=== PATIENT | male | born 1990 | race Two or more races ===

== ENCOUNTER 2021-01-20 23:14 | Emergency (ER) | payer SELFPAY ==
[~2021-01-20] VITALS: Ht 165.1 cm; Wt 77.3 kg
[2021-01-21 00:20] VITALS: BP 114/68
[2021-01-21] MEDS ORDERED: FLUORESCEIN OPHTH TEST STRIP. OD ONE (01:00)
[2021-01-21] MEDS ORDERED: TETRACAINE 0.5% OPHTH SOLUTION 4ML BOTTLE. OD ONE (01:00)
[2021-01-21] MEDS ORDERED: ERYT1OIN3 OP (01:40)
[2021-01-21] MEDS ORDERED: TOBR5DRO6 OD (01:40)
--- NOTE | 2021-01-21 01:40 | PHYS DOC ---
Past Medical History Past Medical History: No Pertinent History Past Surgical History: No Surgical History Smoking Status: Never Smoker Alcohol Use: None Drug Use: None General Adult EDM: Chief Complaint: EYE PROBLEMS HPI: HPI: Patient is a 30 year old MALE who presented to the ER today due to right eye pain. 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 Today, while at work, he felt like there was something in his right eye, he tried to clean it out with water but he continues to have pain, sharp pain in nature, denied any blurry vision. Review of Systems: Review of Systems: Constitutional: Denies fever or chills. [] Eyes: Positive for right eye pain. NO BLURRY VISION HENT: Denies nasal congestion or sore throat. [] Respiratory: Denies cough or shortness of breath. [] Cardiovascular: Denies chest pain or edema. [] GI: Denies abdominal pain, nausea, vomiting, bloody stools or diarrhea. [] : Denies dysuria. [] Musculoskeletal: Denies back pain or joint pain. [] Integument: Denies rash. [] Neurologic: Denies headache, focal weakness or sensory changes. [] Endocrine: Denies polyuria or polydipsia. [] Lymphatic: Denies swollen glands. [] Psychiatric: Denies depression or anxiety. [] Heart Score: C/O Chest Pain: N/A Risk Factors: Risk Factors: DM, Current or recent (<one month) smoker, HTN, HLP, family history of CAD, obesity. Risk Scores: Score 0 - 3: 2.5% MACE over next 6 weeks - Discharge Home Score 4 - 6: 20.3% MACE over next 6 weeks - Admit for Clinical Observation Score 7 - 10: 72.7% MACE over next 6 weeks - Early Invasive Strategies Current Medications: Current Medications Medications (Trade) Dose Ordered Sig/Jose A Start Time Stop Time Status Last Admin Dose Admin Fluorescein Sodium (Ful-Bernadette) 1 strip 1X ONCE 01/21/21 01:00 01/21/21 01:01 DC Tetracaine HCl (Tetracaine) 3 drop 1X ONCE 01/21/21 01:00 01/21/21 01:01 DC Allergies: Allergies: Allergies Coded Allergies Type Severity Reaction Last Updated Verified No Known Drug Allergies 05/29/15 No Physical Exam: PE: Constitutional: Well developed, well nourished, no acute distress, non-toxic appearance. [] HENT: Normocephalic, atraumatic, bilateral external ears normal, oropharynx moist, no oral exudates, nose normal. [] Eyes: PERRLA, EOMI, RIGHT SIDE CONJUNCTIVA WITH INJECTION, RIGHT CORNEA ABRASION, DYE UPTAKE AT NOON POSITION, NO HYPHEMA, NEGATIVE YOUNG TEST. Neck: Normal range of motion, no tenderness, supple, no stridor. [] Cardiovascular:Heart rate regular rhythm, no murmur [] Lungs & Thorax: Bilateral breath sounds clear to auscultation [] Abdomen: Bowel sounds normal, soft, no tenderness, no masses, no pulsatile masses. [] Skin: Warm, dry, no erythema, no rash. [] Back: No tenderness, no CVA tenderness. [] Extremities: No tenderness, no cyanosis, no clubbing, ROM intact, no edema. [] Neurologic: Alert and oriented X 3, normal motor function, normal sensory function, no focal deficits noted. [] Psychologic: Affect normal, judgement normal, mood normal. [] Current Patient Data: Vital Signs: Vital Signs Date Time Temp Pulse Resp B/P (MAP) Pulse Ox O2 Delivery O2 Flow Rate FiO2 01/21/21 00:20 98.8 86 20 114/68 98 Room Air 98.8 EKG: EKG: [] Radiology/Procedures: Radiology/Procedures: [] Course & Med Decision Making: Course & Med Decision Making Pertinent Labs and Imaging studies reviewed. (See chart for details) Patient is a male present to ER due to right eye pain, patient was found to have a corneal abrasion. Patient was discharged home with antibiotic ointment and antibiotic eyedrop, patient will need to follow-up with eye doctor in a couple days for reevaluation. Dragon Disclaimer: Dragon Disclaimer: This electronic medical record was generated, in whole or in part, using a voice recognition dictation system. Departure Departure Impression: Primary Impression: Corneal abrasion, right Disposition: 01 HOME / SELF CARE / HOMELESS Condition: STABLE Referrals: NO PCP (PCP) Please call this EYE DOCTOR BELOW FOR FOLLOW UP IN 1-[address] Jorge Junior [address] [id number] Patient Instructions: Eye - Corneal Abrasion Additional Instructions: Thank you for visiting our Emergency Department. We appreciate you trusting us with your care. If any additional problems come up don't hesitate to return to visit us. Please follow up with your primary care provider so they can plan additional care if needed and know about the problem that you had. If symptoms worsen come back to the Emergency Department. Any concerning symptoms that start such as chest pain, shortness of air, weakness or numbness on one side of the body, running high fevers or any other concerning symptoms return to the ER. Scripts Erythromycin Base (ERYTHROMYCIN) 3.5 Gm Oint...g. 1 PHILLIP OP 3XDAY for OPHTH ANTIBIOTIC, #3.5 GM Prov: DAVID CHÁVEZ DO 01/21/21 Tobramycin Ophth (TOBRAMYCIN OPHTH DROPS) 5 Ml Drops 2 DROP OD QID for 7 Days, #5 ML 0 Refills Prov: DAVID CHÁVEZ DO 01/21/21 DAVID CHÁVEZ DO Jan 21, 2021 01:40
[2021-01-21] MEDS ORDERED: DIPH,PERTUSS(ACELL),TET VAC/PF 0.5 ML SYRINGE. VAX IM ONE (01:45)
== END 2021-01-21 02:09 | disposition home or self-care (01) ==
LOC: ER 23:14
DX: S05.01XA Injury of conjunctiva and corneal abrasion without foreign body, right eye, initial encounter (principal); X58.XXXA Exposure to other specified factors, initial encounter; Y93.89 Activity, other specified; Y92.89 Other specified places as the place of occurrence of the external cause; Y99.8 Other external cause status
CPT/HCPCS: 99283